=== PATIENT | male | born 1995 | race African-American/Black ===

== ENCOUNTER 2019-05-16 01:51 | Inpatient (IN) ==
[2019-05-16] MEDS ORDERED: ONDANSETRON INJ 2 MG/ML 2 ML VIAL IV STA ×2 (02:37→04:06)
[2019-05-16] MEDS: SODIUM CHLORIDE 0.9% 1000ML 1,000 ML IV SCH ×2 (02:45→03:46)
[2019-05-16 02:50] LABS: Hematocrit (blood only) 49.6 % (42-52); Hemoglobin 16.9 g/dL (14.0-18.0); Mean Corpuscular Hemoglobin 31.1 pg (25-34); Mean Corpuscular Hgb Conc 34.1 g/dL (32-36); Mean Corpuscular Volume 91.3 fL (80-100); Mean Platelet Volume 11.6 fL (7.4-10.4); Platelet Count 190 K/uL (130-400); RDW Coefficient of Variation 12.5 % (11.5-14.5); Red Blood Count 5.43 M/uL (4.7-6.1); White Blood Count 17.58 K/uL (4.8-10.8)
[2019-05-16 03:01] LABS: Appearance Urine Clear (Clear); Bacteria Urine Automated Negative (Negative); Bilirubin Urine Negative (Negative); Blood Urine Negative (Negative); Cast Urine Automated 0 /lpf (0-5); Color Urine Yellow; Epithelial Cell Urine Auto 0-5 /lpf (0-5); Glucose Urine UA 3+ (Negative); Leukocyte Esterase Urine Negative (Negative); Nitrite Urine Negative (Negative); Protein Urine 1+ (Negative); RBC Urine Automated 0-4 /hpf (0-4); Specific Gravity Urine 1.038 (1.000-1.030); Urobilinogen Urine Negative (Negative); WBC Urine Automated 0 /hpf (0-5)
[2019-05-16 03:13] LABS: Basophils # (auto) 0.04 K/uL (0-0.2); Basophils % (auto) 0.2 %; Eosinophils # (auto) 0.02 K/uL (0-0.5); Eosinophils % (auto) 0.1 %; Immature Granulocytes # (auto) 0.24 K/uL (0.00-0.02); Immature Granulocytes % (auto) 1.4 %; Lymphocytes # (auto) 1.39 K/uL (1.2-3.4); Lymphocytes % (auto) 7.9 %; Monocytes % (auto) 5.7 %; Neutrophils # (auto) 14.89 K/uL (1.4-6.5); Neutrophils % (auto) 84.7 %
[2019-05-16 03:18] LABS: Albumin Globulin Ratio 0.9 (0.9-2); Albumin Level 4.6 gm/dl (3.4-5.0); BUN Creatinine Ratio 12.3 (10-20); Bilirubin,Total 0.9 mg/dl (0.2-1); Calcium 10.2 mg/dl (8.5-10.1); Creatinine Clr Calc Pharmacy 42.6 ml/min; Est GFR (African American) 76.7; Est GFR (Non-African American) 66.2; Potassium 5.1 mmol/L (3.5-5.1); Total Protein 9.6 gm/dl (6.4-8.2)
[2019-05-16 03:18] LABS: Ketones Urine 4+ (Negative)
[2019-05-16] MEDS ORDERED: INSULIN HUMAN REGULAR PER UNIT 5 UNITS in SYRINGE 0 ML SC STA (03:32)
[2019-05-16 03:34] LABS: Amphetamines+Metham, Urine Neg (Neg); Barbiturates, Urine Neg (Neg); Benzodiazepine, Urine Neg (Neg); Cocaine, Urine Neg (Neg); MDMA (Ecstacy), Urine Neg (Neg); Methadone, Urine Neg (Neg); Opiate, Urine Neg (Neg); Phencyclidine, Urine Neg (Neg)
[2019-05-16] MEDS ORDERED: NovoLIN-R INSULIN PER UNIT CHARGE SQ ONE ×2 (03:45)
[2019-05-16 03:48] LABS: Beta-Hydroxybutyrate 89.79 mg/dl (0.2-2.81)
[2019-05-16] MEDS ORDERED: INSULIN ASPART 100 UNITS/ML 3 ML PEN SC SCH (04:00)
[2019-05-16] MEDS ORDERED: SODIUM CHLORIDE 0.9% 1000ML 1,000 ML IV SCH ×2 (04:15→06:45)
[2019-05-16] MEDS ORDERED: PROMETHAZINE 12.5 MG/50.5 ML BAG IV ONE (04:47)
--- NOTE | 2019-05-16 05:17 | History & Physical Report ---
Date of Service May 16, 2019 Assessment & Plan (1) DKA (diabetic ketoacidoses): Type I DM presenting with presumed DKA. Blood oexqo=420, anion gap = 28, serum HCO3=9. Patient with leukocytosis. K=5.1. Ki=691 which corrects to normal for hyperglycemia. No clear inciting event -Admit to PCU -NSS x 1L bolus followed by NSS at 125mL/hr -Insulin gtt per protocol - DKA range -Zofran and Phenergan PRN nausea -Tylenol PRN pain -BMP/VBG/Mg q 4 hours -NPO Present on Admission?: Yes (2) Nausea and vomiting: Most likely secondary to DKA -Phenergan and Zofran PRN Present on Admission?: Yes (3) Leukocytosis: WBC=17.58, Neutrophil predominant. Patient afebrile, HD stable, no obvious source of infection. -Check CXR -Repeat CBC F/E/N- NSS @ 125mL/hr, change to D51/2NSS when BS 250, monitor electrolytes and replete as needed, BMP q 4 hours, NPO for now Ppx - Low risk for DVT Code - FUll Dispo - Admit to PCU Present on Admission?: Yes History of Present Illness Chief Complaint: DKA Primary Care Provider: [facility] 24yo male, [employer] student with Type I Dm presenting with DKA. Patient drank a little bit of EtOH on Thursday night. Thursday he began feeling fevers, chills, nausea with multiple episodes of non-bloody/non-bilious vomiting, dry heaving. His blood sugar on Thursday night was 127. He reports not missing any insulin doses - his dose was later than usual, however. He denies chest pain, palpitations, SOB, abdominal pain. Patient's friend is at bedside and provides majority of history as patient is feeling quite nauseous. ER Course: Insulin 5u, NSS x 2L, Zofran 4mg IV x 2, Phenergan 12.5mg Allergies Allergy/AdvReac Type Severity Reaction Status Date / Time No Known Drug Allergies Allergy Unknown Verified 05/16/19 02:21 Home Medications Home Medications Medication Instructions Recorded Confirmed Type Humalog KwikPen (U- 100) Insulin 30 units SQ DAILY #15 ml NS 03/28/19 05/16/19 Rx 100 unit/mL subcutaneous blood sugar diagnostic strips #10 ea 05/12/19 05/16/19 History glucagon (human recombinant) 1 mg 1 mg SQ Q20M PRN 05/12/19 05/16/19 History solution for injection insulin glargine (U-100) 100 18 units SQ DAILY ml 05/12/19 05/16/19 History unit/mL (3 mL) subcutaneous pen lancets 33 gauge #100 ea 05/12/19 05/16/19 History Past Med/Surg History Medical History Type I diabetes mellitus diagnosed at age 14 Surgical History No pertinent past surgical history Family History Other No pertinent family history in first degree relatives Social History Preferred Language: Upper Sorbian current occupational status: student Feels Safe at Home: Yes Smoking Status: Current some day smoker Hx Alcohol Use: Yes Alcohol Intake Frequency: Holidays/Special Occasions Hx Substance Use: Yes substance use type: marijuana Review of Systems Review of Systems: All systems reviewed & are unremarkable except as noted in HPI & below Physical Exam Physical Exam: General: patient in mild distress secondary to nausea, ill in appearance, AA&O x 4 Skin: warm, dry, intact, no rashes or lesions HEENT: NC/AT, PERRL, EOMI, anicteric sclera, conjunctiva without injection, external ear normal to inspection and nontender, nares patent, dry mucus me mbranes, dentition intact, no oropharyngeal lesions, neck supple, trachea midline, no LAD, no thyromegaly, no JVD Heart: +S1/S2, regular, no m/r/g Lungs: equal air entry bilaterally, no rales/rhonchi/wheezes Abd: +BS, soft, NT/ND, no masses/organomegaly/ascites Ext: warm, 2+ pulses in UE/LE bilaterally, no clubbing/cyanosis or edema Neuro: nonfocal, patient AA&O x 4, speech intact, no facial droop, moving all extremities on command with equal strength 5/5 Results & Data Vital Signs (Past 12 Hours) Vital Signs Temp Pulse Pulse Resp BP BP Pulse Ox 05/16/19 04:15 95 H 18 135/76 100 05/16/19 02:51 90 18 150/93 H 99 05/16/19 01:56 36.8 C 110 H 20 139/80 96 Laboratory Results Lab Results 05/16/19 05/16/1919 Range/Units 02:05 02:10 02:10 WBC 17.58 H (4.8-10.8) K/uL RBC 5.43 (4.7-6.1) M/uL Hgb 16.9 (14.0-18.0) g/dL Hct 49.6 (42-52) % MCV 91.3 (80-100) fL MCH 31.1 (25-34) pg MCHC 34.1 (32-36) g/dL RDW Std Deviation 42.0 (36.4-46.3) fL RDW Coeff of Catherine 12.5 (11.5-14.5) % Plt Count 190 (130-400) K/uL MPV 11.6 H (7.4-10.4) fL Immature Gran % (Auto) 1.4 % Neut % (Auto) 84.7 % Lymph % (Auto) 7.9 % [place] % (Auto) 5.7 % Eos % (Auto) 0.1 % Baso % (Auto) 0.2 % Immature Gran # (Auto) 0.24 H (0.00-0.02) K/uL Neut # (Auto) 14.89 H (1.4-6.5) K/uL Lymph # (Auto) 1.39 (1.2-3.4) K/uL [place] # (Auto) 1.00 H (0.11-0.59) K/uL Eos # (Auto) 0.02 (0-0.5) K/uL Baso # (Auto) 0.04 (0-0.2) K/uL Sodium 129 L (136-145) mmol/L Potassium 5.1 (3.5-5.1) mmol/L Chloride 92 L (98-107) mmol/L Carbon Dioxide 9 L* (21-32) mmol/L Anion Gap 28.0 H (3-11) BUN 18 (7-18) mg/dl Creatinine 1.48 H (0.6-1.4) mg/dl Est Cr Clr Drug Dosing 42.6 ml/min Est GFR ( Amer) 76.7 Est GFR (Non-Af Amer) 66.2 BUN/Creatinine Ratio 12.3 (10-20) Glucose 511 H* (70-99) mg/dl POC Glucose 487 H* (70-99) Calcium 10.2 H (8.5-10.1) mg/dl Total Bilirubin 0.9 (0.2-1) mg/dl AST 25 (15-37) U/L ALT 30 (12-78) U/L Alkaline Phosphatase 149 H (45-117) U/L Total Protein 9.6 H (6.4-8.2) gm/dl Albumin 4.6 (3.4-5.0) gm/dl Globulin 5.0 H (2.5-4.0) gm/dl Albumin/Globulin Ratio 0.9 (0.9-2) Lipase 37 L (73-393) U/L Beta-Hydroxybutyric Acd 89.79 H (0.2-2.81) mg/dl Urine Color Urine Appearance (Clear) Urine pH (4.5-7.5) Ur Specific [place] (1.000-1.030) Urine Protein (Negative) Urine Glucose (UA) (Negative) Urine Ketones (Negative) Urine Blood (Negative) Urine Nitrite (Negative) Urine Bilirubin (Negative) Urine Urobilinogen (Negative) Ur Leukocyte Esterase (Negative) Urine WBC (Auto) (0-5) /hpf Urine RBC (Auto) (0-4) /hpf U Hyaline Cast (Auto) (0-5) /lpf U Epithel Cells (Auto) (0-5) /lpf Urine Bacteria (Auto) (Negative) Urine Opiates Screen (Neg) Ur Methadone, Qual (Neg) Urine Barbiturates (Neg) Ur Phencyclidine (PCP) (Neg) U Amphetamin/Meth Scrn (Neg) MDMA (Ecstasy) Screen (Neg) U Benzodiazepines Scrn (Neg) Ur Cocaine Metabolite (Neg) U Marijuana (THC) Screen (Neg) Influenza Type A Ag (Neg) Influenza Type B Ag (Neg) 05/16/19 05/16/19 05/16/19 Range/Units 02:51 02:51 02:51 WBC (4.8-10.8) K/uL RBC (4.7-6.1) M/uL Hgb (14.0-18.0) g/dL Hct (42-52) % MCV (80-100) fL MCH (25-34) pg MCHC (32-36) g/dL RDW Std Deviation (36.4-46.3) fL RDW Coeff of Catherine (11.5-14.5) % Plt Count (130-400) K/uL MPV (7.4-10.4) fL Immature Gran % (Auto) % Neut % (Auto) % Lymph % (Auto) % [place] % (Auto) % Eos % (Auto) % Baso % (Auto) % Immature Gran # (Auto) (0.00-0.02) K/uL Neut # (Auto) (1.4-6.5) K/uL Lymph # (Auto) (1.2-3.4) K/uL [place] # (Auto) (0.11-0.59) K/uL Eos # (Auto) (0-0.5) K/uL Baso # (Auto) (0-0.2) K/uL Sodium (136-145) mmol/L Potassium (3.5-5.1) mmol/L Chloride (98-107) mmol/L Carbon Dioxide (21-32) mmol/L Anion Gap (3-11) BUN (7-18) mg/dl Creatinine (0.6-1.4) mg/dl Est Cr Clr Drug Dosing ml/min Est GFR ( Amer) Est GFR (Non-Af Amer) BUN/Creatinine Ratio (10-20) Glucose (70-99) mg/dl POC Glucose (70-99) Calcium (8.5-10.1) mg/dl Total Bilirubin (0.2-1) mg/dl AST (15-37) U/L ALT (12-78) U/L Alkaline Phosphatase (45-117) U/L Total Protein (6.4-8.2) gm/dl Albumin (3.4-5.0) gm/dl Globulin (2.5-4.0) gm/dl Albumin/Globulin Ratio (0.9-2) Lipase (73-393) U/L Beta-Hydroxybutyric Acd (0.2-2.81) mg/dl Urine Color Yellow Urine Appearance Clear (Clear) Urine pH 5.0 (4.5-7.5) Ur Specific [place] 1.038 H (1.000-1.030) Urine Protein 1+ H (Negative) Urine Glucose (UA) 3+ H (Negative) Urine Ketones 4+ H (Negative) Urine Blood Negative (Negative) Urine Nitrite Negative (Negative) Urine Bilirubin Negative (Negative) Urine Urobilinogen Negative (Negative) Ur Leukocyte Esterase Negative (Negative) Urine WBC (Auto) 0 (0-5) /hpf Urine RBC (Auto) 0-4 (0-4) /hpf U Hyaline Cast (Auto) 0 (0-5) /lpf U Epithel Cells (Auto) 0-5 (0-5) /lpf Urine Bacteria (Auto) Negative (Negative) Urine Opiates Screen Neg (Neg) Ur Methadone, Qual Neg (Neg) Urine Barbiturates Neg (Neg) Ur Phencyclidine (PCP) Neg (Neg) U Amphetamin/Meth Scrn Neg (Neg) MDMA (Ecstasy) Screen Neg (Neg) U Benzodiazepines Scrn Neg (Neg) Ur Cocaine Metabolite Neg (Neg) U Marijuana (THC) Screen Pos H (Neg) Influenza Type A Ag Neg for Influ A (Neg) Influenza Type B Ag Neg for Influ B (Neg) 05/16/19 Range/Units 04:18 WBC (4.8-10.8) K/uL RBC (4.7-6.1) M/uL Hgb (14.0-18.0) g/dL Hct (42-52) % MCV (80-100) fL MCH (25-34) pg MCHC (32-36) g/dL RDW Std Deviation (36.4-46.3) fL RDW Coeff of Catherine (11.5-14.5) % Plt Count (130-400) K/uL MPV (7.4-10.4) fL Immature Gran % (Auto) % Neut % (Auto) % Lymph % (Auto) % [place] % (Auto) % Eos % (Auto) % Baso % (Auto) % Immature Gran # (Auto) (0.00-0.02) K/uL Neut # (Auto) (1.4-6.5) K/uL Lymph # (Auto) (1.2-3.4) K/uL [place] # (Auto) (0.11-0.59) K/uL Eos # (Auto) (0-0.5) K/uL Baso # (Auto) (0-0.2) K/uL Sodium (136-145) mmol/L Potassium (3.5-5.1) mmol/L Chloride (98-107) mmol/L Carbon Dioxide (21-32) mmol/L Anion Gap (3-11) BUN (7-18) mg/dl Creatinine (0.6-1.4) mg/dl Est Cr Clr Drug Dosing ml/min Est GFR ( Amer) Est GFR (Non-Af Amer) BUN/Creatinine Ratio (10-20) Glucose (70-99) mg/dl POC Glucose 424 H* (70-99) Calcium (8.5-10.1) mg/dl Total Bilirubin (0.2-1) mg/dl AST (15-37) U/L ALT (12-78) U/L Alkaline Phosphatase (45-117) U/L Total Protein (6.4-8.2) gm/dl Albumin (3.4-5.0) gm/dl Globulin (2.5-4.0) gm/dl Albumin/Globulin Ratio (0.9-2) Lipase (73-393) U/L Beta-Hydroxybutyric Acd (0.2-2.81) mg/dl Urine Color Urine Appearance (Clear) Urine pH (4.5-7.5) Ur Specific [place] (1.000-1.030) Urine Protein (Negative) Urine Glucose (UA) (Negative) Urine Ketones (Negative) Urine Blood (Negative) Urine Nitrite (Negative) Urine Bilirubin (Negative) Urine Urobilinogen (Negative) Ur Leukocyte Esterase (Negative) Urine WBC (Auto) (0-5) /hpf Urine RBC (Auto) (0-4) /hpf U Hyaline Cast (Auto) (0-5) /lpf U Epithel Cells (Auto) (0-5) /lpf Urine Bacteria (Auto) (Negative) Urine Opiates Screen (Neg) Ur Methadone, Qual (Neg) Urine Barbiturates (Neg) Ur Phencyclidine (PCP) (Neg) U Amphetamin/Meth Scrn (Neg) MDMA (Ecstasy) Screen (Neg) U Benzodiazepines Scrn (Neg) Ur Cocaine Metabolite (Neg) U Marijuana (THC) Screen (Neg) Influenza Type A Ag (Neg) Influenza Type B Ag (Neg) Code Status & VTE Plan Code Status full VTE Prophylaxis Plan VTE Prophylaxis will be ordered: No Reason for no VTE drug order: Treatment not indicated Reason for no VTE mechanical prophylaxis: Treatment not indicated PG Care Time/CCT Total # of Minutes Spent Total Time Spent with Patient: Total time spent is greater than 50% in coordination of care (as documented) at patient's floor/unit and/or counseling patient: (1) DKA (diabetic ketoacidoses) Diabetes mellitus complication detail: without coma Diabetes mellitus type: type 1 Qualified Code(s): E10.10 - Type 1 diabetes mellitus with ketoacidosis without coma (2) Nausea and vomiting Vomiting Intractability: unspecified Vomiting type: unspecified Qualified Code(s): R11.2 - Nausea with vomiting, unspecified (3) Leukocytosis Leukocytosis type: unspecified Qualified Code(s): D72.829 - Elevated white blood cell count, unspecified
[2019-05-16] MEDS ORDERED: ONDANSETRON INJ 2 MG/ML 2 ML VIAL IV PRN (05:28)
[2019-05-16] MEDS ORDERED: ACETAMINOPHEN 325 MG TAB PO PRN (05:28)
[2019-05-16] MEDS ORDERED: PROMETHAZINE HCL 12.5 MG in SODIUM CHLORIDE 0.9% 50 ML IV PRN (05:28)
[2019-05-16] MEDS ORDERED: DKA GOAL RANGE 150-250 mg/dl ONE (05:28)
[2019-05-16] MEDS ORDERED: SODIUM CHLORIDE 0.9% 1000ML 1,000 ML IV ONE (05:45)
[2019-05-16] MEDS ORDERED: CARBOHYDRATES FOR HYPOGLYCEMIA PO PRN (06:00)
[2019-05-16] MEDS ORDERED: PENDING D5 1/2NS+20mEq KCL IVF SCH (06:00)
[2019-05-16] MEDS ORDERED: GLUCAGON FOR INJ 1 MG VIAL IM PRN (06:00)
[2019-05-16] MEDS ORDERED: INSULIN REGULAR 250 UNITS in SODIUM CHLORIDE 0.9% 247.5 ML IV SCH (06:00)
[2019-05-16] MEDS ORDERED: INSULIN HUMAN REGULAR IV BOLUS 5 UNITS in SYRINGE 0 ML IV ONE (06:00)
[2019-05-16] MEDS ORDERED: GLUCOSE 10 TABS/TUBE PO PRN (06:00)
[2019-05-16] MEDS ORDERED: GLUCOSE 40% GEL 15 GM TUBE PO PRN (06:00)
[2019-05-16] MEDS ORDERED: DEXTROSE 50% 50 ML SYRINGE IV PRN (06:00)
[2019-05-16 07:07] LABS: BUN Creatinine Ratio 13.4 (10-20); Calcium 7.8 mg/dl (8.5-10.1); Creatinine Clr Calc Pharmacy 75.2 ml/min; Est GFR (African American) 104.1; Est GFR (Non-African American) 89.8; Magnesium 2.1 mg/dl (1.8-2.4); Potassium 4.7 mmol/L (3.5-5.1)
--- NOTE | 2019-05-16 07:11 | XRay Report ---
XR chest 1V portable CLINICAL HISTORY: Diabetic ketoacidosis. COMPARISON STUDY: No previous studies for comparison. FINDINGS: Lung volumes are normal. Lungs are clear. There is no pneumothorax or pleural effusion. Car diac size is normal. Mediastinal contours are normal. There is no evidence for pulmonary edema. IMPRESSION: No acute cardiopulmonary findings. Electronically signed by: Maximino Choi M.D. 05/16/2019 7:10 AM
[2019-05-16] MEDS ORDERED: D5W AND 1/2NSS + 20MEQ KCL 20 MEQ/1,000 ML BAG IV SCH (07:45)
[2019-05-16] MEDS ORDERED: PHARMACY GLYCEMIC MGMT CONSULT PRN (08:02)
[2019-05-16 08:09] LABS: Estimated Average Glucose 324 mg/dl; Hemoglobin A1C 12.9 % (4.5-5.6)
--- NOTE | 2019-05-16 08:27 | Pharmacy Report ---
Glycemic Control Consultation - Date of Service May 16, 2019 - Scope Scope: Glycemic Pharmacist consulted for glycemic control and to write orders per [facility] inpatient glycemic control protocol - Objective Weight: 52.8 kg Acckbecks BSG (last 24hrs): 05/16/19 05/16/19 05/16/19 02:05 02:10 04:18 Glucose 511 H* POC Glucose 487 H* 424 H* 05/16/19 05/16/19 05/16/19 05:58 06:19 07:07 Glucose 293 H POC Glucose 300 H 202 H 05/16/19 08:04 Glucose POC Glucose 163 H Laboratory Data (last 24hrs): 05/16/19 05/16/19 02:10 06:19 Potassium 5.1 4.7 Carbon Dioxide 9 L* 11 L Anion Gap 28.0 H 17.0 H Creatinine 1.48 H 1.15 D Est Cr Clr Drug Dosing 42.6 75.2 Beta-Hydroxybutyric Acd 89.79 H HbA1c: Hemoglobin A1c 12.9 % (4.5-5.6) H 05/16/19 06:19 - Recent Pertinent Medications Outpatient Anti-diabetic Regimen: Per Lindsay Laura (educator senior clinical) * Basaglar 16 units SC qHS * Humalog 8-12 units SC TIDM A1c = 12.9 % on 05/16/19 The patient is currently receiving: * Insulin drip @ 2.4 units/hr Risk Factors for Insulin Resistance: * IVF: D5 1/2NS w KCL 20 mEq/L @ 100 mL/hr * Diet: T1DM - Assessment & Plan Assessment & Plan: ASSESSMENT: * 24 yo M with TYPE 1 diabetes admitted for DKA. Etiology of DKA likely 2nd missed Basaglar dose yesterday in addition to insufficient doses of insulin chronically due in part to significant recent decrease in physical activity. HbA1c of 12.9%. * Insulin drip was started this AM at around 0600. Patient is not ready to transition to basal/bolus at this time as anion gap is still elevated, CO2 is still low, and pH is still low. Ongoing labs ordered q4h to trend. * Anion gap now less than 12, CO2 greater than 15, and pH greater than 7.3. Transition off of insulin drip can be attempted soon * Dextrose and potassium content in IVF is appropriate, but OK to discontinue now that electrolytes have normalized * Goal range 150-250 mg/dL changed to 140-180 mg/dL now that electrolytes have normalized * Spoke w Lindsay Laura (educator senior clinical) who clarified outpatient regimen (above). Patient reported surprise with how high his A1c was, noting that it is usually significantly below current of 12.9%. He reported that he usually checks his BSG's 4 times per day and they have been running ~250 mg/dL. He did not take his Basaglar yesterday nor did he check BSG's because he wasn't eating. Education provided by Lindsay r/moshe importance of checking BSG's more frequently and also to not hold basal insulin. * Patient would likely benefit from transitioning to basal/bolus with 1st dose Lantus in the evening to aid eventual transition back to outpatient regimen. Discussed with Dr. Kt HAGEN to attempt transition with 1st Lantus dose this evening. PLAN FOR INPATIENT GLYCEMIC CONTROL: * Continue IV insulin infusion, new goal range 140-180 mg/dL to help drip transition off. Stop at 0200. * Lantus 18 units x1 @ 2000 * Bolus insulin (while on drip) * NovoLog per scale ACHS * Carb ratio determined by insulin drip calculator * Bolus insulin (after drip d/c) * Novolog per scale ACHS with 0000,0400 checks * Goal range 120-160 mg/dL * Correction factor: 45 mg/dL/unit * Carb ratio: 15 g CHO/unit * Please note that the plan above was derived based on current level of insulin resistance and hospital stress. These recommendations are appropriate for inpatient admission only. Plan of care upon discharge will need to be reassessed to avoid potential outpatient hypo/hyperglycemia. Thank you.
[2019-05-16] MEDS: INSULIN ASPART 100 UNITS/ML 3 ML PEN SC SCH ×4 (09:28→20:39)
[2019-05-16 10:26] LABS: BUN Creatinine Ratio 12.7 (10-20); Calcium 8.1 mg/dl (8.5-10.1); Creatinine Clr Calc Pharmacy 92.1 ml/min; Est GFR (African American) 132.9; Est GFR (Non-African American) 114.6; Magnesium 2.1 mg/dl (1.8-2.4); Potassium 4.6 mmol/L (3.5-5.1)
[2019-05-16 10:27] LABS: Phosphorus 2.6 mg/dl (2.5-4.9)
[2019-05-16 14:09] LABS: BUN Creatinine Ratio 9.7 (10-20); Calcium 8.4 mg/dl (8.5-10.1); Creatinine Clr Calc Pharmacy 83.2 ml/min; Est GFR (African American) 117.6; Est GFR (Non-African American) 101.4; Potassium 4.2 mmol/L (3.5-5.1)
[2019-05-16 14:10] LABS: Phosphorus 2.7 mg/dl (2.5-4.9)
--- NOTE | 2019-05-16 15:47 | History & Physical Bridge Note ---
Date of Service May 16, 2019 History & Physical Bridge Note I have examined the patient, reviewed the History & Physical and in the interval since the performance of the History & Physical I have noted the following changes of clinical significance patient feeling a lot better this morning reviewed most recent labs, AG closed at 9, HCO3 up to 18, glucose in range d/w pharmacy, will start Lantus this evening, transition to SS insulin and off drip he says that he follows at [facility] Endocr[facility]ology, next appt in July he admits that he used to work out a lot more, stopped doing that, may be why his insulin requirement is higher will check labs in the AM, follow glucose off the drip plan for going home tomorrow with [facility] follow up and likely closer endocrinology follow up pharmacy and ems educator will help with d/c planning
[2019-05-16] MEDS ORDERED: COUGH DROP (SUGAR FREE) LOZ 24 LOZ/1 BOX BUCCAL ONE (16:47)
[2019-05-16] MEDS ORDERED: INSULIN GLARGINE SOLOSTAR 100 UNITS/ML 3 ML PEN SC ONE (20:00)
[2019-05-16] MEDS ORDERED: Nursing to Pharmacy Communication ONE (20:46)
[2019-05-16] MEDS ORDERED: CHLORASEPTIC 1.4% SOLN 180 ML BTL MT PRN (21:16)
--- NOTE | 2019-05-17 00:03 | Emergency Department Note ---
History of Present Illness General Chief complaint: Fever Stated complaint: HIGH FEVER,FREQUENT VOMITING Time Seen by Provider: 05/16/19 02:34 History of Present Illness This is a 24-year-old male presenting to the emergency department for evaluation of nausea and vomiting for the past 16 hours. The patient is a diabetic who uses injectable insulin. He did drink a small amount of alcohol on Thursday and Thursday night, and did smoke marijuana. The patient believes that he has had a fever, but has not been checking his temperature. The patient initially had foodborne emesis, but is now dry heaving. He is not able to take anything by mouth because of his symptoms. He does have full body aches but not distinct chest or abdominal pains. He rates his current discomfort in 02/26. Home Medications Home Medications Medication Instructions Recorded Confirmed Type Humalog KwikPen (U- 100) Insulin 30 units SQ DAILY #15 ml NS 03/28/19 05/16/19 Rx 100 unit/mL subcutaneous blood sugar diagnostic strips #10 ea 05/12/19 05/16/19 History glucagon (human recombinant) 1 mg 1 mg SQ Q20M PRN 05/12/19 05/16/19 History solution for injection insulin glargine (U-100) 100 18 units SQ DAILY ml 05/12/19 05/16/19 History unit/mL (3 mL) subcutaneous pen lancets 33 gauge #100 ea 05/12/19 05/16/19 History Allergies Allergy/AdvReac Type Severity Reaction Status Date / Time No Known Drug Allergies Allergy Unknown Verified 05/16/19 02:21 Past Med/Surg History Medical History Type I diabetes mellitus diagnosed at age 14 Surgical History No pertinent past surgical history Family History Other No pertinent family history in first degree relatives Social History Preferred Language: Portuguese Communication Ability: Effective 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 Current Living Situation: Alone current occupational status: student Feels Safe at Home: Yes Smoking Status: Light tobacco smoker Tobacco Type: smokeless tobacco ; Second Hand Exposure: Yes ; Hx Alcohol Use: Yes Alcohol type: beer Alcohol Intake Frequency: Holidays/Special Occasions Hx Substance Use: No Review of Systems A total of 10 systems reviewed and were otherwise negative Physical Exam Vital Signs Vital Signs - 24 hr 05/16/19 01:56 05/16/19 02:51 05/16/19 04:15 Temperature 36.8 C Temperature Source Oral Sepsis Recent Fever Within 48 Hours No Sepsis New/Unexplained Change in Mental Status No Sepsis Action Taken by Nursing No Action Required Pulse Rate 110 H Pulse Rate [Finger] 90 95 H Respiratory Rate 20 18 18 Blood Pressure 139/80 Blood Pressure [Right Arm] 150/93 H 135/76 Blood Pressure Mean 99 Blood Pressure Mean [Right Arm] 112 95 Pulse Oximetry 96 99 100 Oxygen Delivery Method Room Air Room Air Room Air VITALS: Vitals are noted on the nurse's note and reviewed by myself. Vital signs stable. GENERAL: Male who appears ill and uncomfortable. He is dry heaving at times on examination. HEAD: Normocephalic atraumatic. MOUTH: Mucous membranes dry. Tonsils are not enlarged. Pharynx without erythema, blood, or exudate. Uvula midline. Airway patent. NECK: Supple without nuchal rigidity. No lymphadenopathy. No thyromegaly. Cervical spine is nontender. HEART: Regular rate and rhythm without murmurs gallops or rubs. LUNGS: Clear to auscultation bilaterally without wheezes, rales or rhonchi. No retractions or accessory muscle use. ABDOMEN: Positive normal bowel sounds x 4. Soft, nontender, without masses or organomegaly. No guarding or rebound tenderness. MUSCULOSKELETAL: No muscle atrophy, erythema, or edema noted. Full range of m otion in all extremities. SKIN: The skin was with tenting Course Administered Medications Acetaminophen (Tylenol) 650 mg PO Q4H PRN PRN Reason: Pain or Fever Stop: 06/15/19 05:27 Last Admin: 05/16/19 23:53 Dose: 650 mg Documented by: [id number] Insulin Human Regular 250 (units/ Sodium Chloride) 250 mls @ 2.4 mls/hr IV .Q24H SARAH; Protocol Stop: 05/17/19 02:00 Last Titration: 05/16/19 20:40 Dose: 2.4 units/hr, 2.4 mls/hr Documented by: [id number] Cosigned by: [id number] Titration: 05/16/19 13:20 Dose: 2.4 units/hr, 2.4 mls/hr Documented by: [id number] Cosigned by: [id number] Titration: 05/16/19 11:08 Dose: 2.4 units/hr, 2.4 mls/hr Documented by: [id number] Cosigned by: [id number] Titration: 05/16/19 10:11 Dose: 2.4 units/hr, 2.4 mls/hr Documented by: [id number] Cosigned by: [id number] Titration: 05/16/19 09:00 Dose: 2.4 units/hr, 2.4 mls/hr Documented by: [id number] Cosigned by: [id number] Titration: 05/16/19 08:11 Dose: 2.4 units/hr, 2.4 mls/hr Documented by: [id number] Cosigned by: [id number] Titration: 05/16/19 07:35 Dose: 3 units/hr, 3 mls/hr Documented by: [id number] Cosigned by: [id number] Titration: 05/16/19 07:05 Dose: 0 units/hr, 0 mls/hr Documented by: [id number] Cosigned by: [id number] Admin: 05/16/19 06:05 Dose: 5 units/hr, 5 mls/hr Documented by: [id number] Cosigned by: [id number] Insulin Aspart (Novolog Flexpen) 0 units SC ACHS SARAH Stop: 05/16/19 23:59 Last Admin: 05/16/19 20:39 Dose: 1 units Documented by: [id number] Cosigned by: [id number] Admin: 05/16/19 17:06 Dose: Not Given Documented by: [id number] Cosigned by: [id number] Admin: 05/16/19 12:00 Dose: Not Given Documented by: [id number] Cosigned by: [id number] Admin: 05/16/19 09:28 Dose: Not Given Documented by: [id number] Cosigned by: [id number] Phenol (Chloraseptic 1.4% Sol[place]) 2 sprays MT Q1H PRN PRN Reason: Sore throat Stop: 06/15/19 21:15 Last Admin: 05/16/19 22:10 Dose: 2 sprays Documented by: [id number] Discontinued Medications Sodium Chloride (Nss 1000ml) 1,000 mls @ 999 mls/hr IV .Q1H1M SARAH Stop: 05/16/19 04:37 Last Infusion: 05/16/19 04:48 Dose: 0 mls/hr Documented by: [id number] Admin: 05/16/19 03:46 Dose: 999 mls/hr Documented by: [id number] Infusion: 05/16/19 03:46 Dose: 0 mls/hr Documented by: [id number] Admin: 05/16/19 02:45 Dose: 999 mls/hr Documented by: [id number] Sodium Chloride (Nss 1000ml) 1,000 mls @ 999 mls/hr IV .Q1H1M SARAH Stop: 05/16/19 05:15 Last Infusion: 05/16/19 05:18 Dose: 0 mls/hr Documented by: [id number] Admin: 05/16/19 04:14 Dose: 999 mls/hr Documented by: [id number] Promethazine HCl (Phenergan) 12.5 mg in 50.5 mls @ 202 mls/hr IV NOW ONE Stop: 05/16/19 05:01 Last Infusion: 05/16/19 05:05 Dose: 0 mls/hr Documented by: [id number] Admin: 05/16/19 04:50 Dose: 202 mls/hr Documented by: [id number] Sodium Chloride (Nss 1000ml) 1,000 mls @ 100 mls/hr IV .Q10H SARAH Stop: 06/15/19 06:44 Last Admin: 05/16/19 07:11 Dose: 100 mls/hr Documented by: [id number] Sodium Chloride (Nss 1000ml) 1,000 mls @ 999 mls/hr IV .Q1H1M ONE Stop: 05/16/19 06:45 Last Admin: 05/16/19 05:54 Dose: 999 mls/hr Documented by: [id number] Insulin Human Regular 5 units/ (Syringe) 5 mls @ 0 mls/min IV TODAY@0600 ONE Stop: 05/16/19 06:01 Last Admin: 05/16/19 06:06 Dose: 5 mls/min Documented by: [id number] Cosigned by: [id number] Potassium Chloride/Dextrose/Sod Cl (D5w And 1/2nss + 20meq Kcl) 20 meq in 1,000 mls @ 100 mls/hr IV .Q10H SARAH Stop: 06/15/19 07:44 Last Infusion: 05/16/19 22:22 Dose: 0 mls/hr Documented by: [id number] Infusion: 05/16/19 18:02 Dose: 0 mls/hr Documented by: [id number] Admin: 05/16/19 08:11 Dose: 100 mls/hr Documented by: [id number] Insulin Glargine (Lantus Solostar Pen) 18 units SC TODAY@1999 ONE; Protocol Stop: 05/16/19 20:01 Last Admin: 05/16/19 20:39 Dose: 18 units Documented by: [id number] Cosigned by: [id number] Insulin Human Regular (Novolin R U-100 Per Unit) 5 units SQ ONE ONE Stop: 05/16/19 03:46 Last Admin: 05/16/19 03:43 Dose: 5 units Documented by: [id number] Cosigned by: [id number] Menthol (Nice) Confirm Administered Dose 24 oziel BUCCAL .STK-MED ONE Stop: 05/16/19 16:48 Last Admin: 05/16/19 17:06 Dose: 24 oziel Documented by: [id number] Ondansetron HCl (Zofran) 4 mg IV NOW STA Stop: 05/16/19 02:38 Last Admin: 05/16/19 02:45 Dose: 4 mg Documented by: [id number] Ondansetron HCl (Zofran) 4 mg IV NOW STA Stop: 05/16/19 04:07 Last Admin: 05/16/19 04:14 Dose: 4 mg Documented by: [id number] Medical Decision Making Differential Diagnosis Differential diagnosis: Etiologies such as gastroenteritis, food borne illness, infections, appendicitis, diverticulitis, inflammatory bowel disease, obstruction, GI bleed, biliary pathology, cardiac process, intracranial process, as well as others were entertained. Laboratory Data Result diagrams: 05/16/19 02:10 05/16/19 13:37 Lab Results 05/16/19 05/16/19 05/16/19 Range/Units 02:05 02:10 02:10 WBC 17.58 H (4.8-10.8) K/uL RBC 5.43 (4.7-6.1) M/uL Hgb 16.9 (14.0-18.0) g/dL Hct 49.6 (42-52) % MCV 91.3 (80-100) fL MCH 31.1 (25-34) pg MCHC 34.1 (32-36) g/dL RDW Std Deviation 42.0 (36.4-46.3) fL RDW Coeff of Catherine 12.5 (11.5-14.5) % Plt Count 190 (130-400) K/uL MPV 11.6 H (7.4-10.4) fL Immature Gran % (Auto) 1.4 % Neut % (Auto) 84.7 % Lymph % (Auto) 7.9 % [place] % (Auto) 5.7 % Eos % (Auto) 0.1 % Baso % (Auto) 0.2 % Immature Gran # (Auto) 0.24 H (0.00-0.02) K/uL Neut # (Auto) 14.89 H (1.4-6.5) K/uL Lymph # (Auto) 1.39 (1.2-3.4) K/uL [place] # (Auto) 1.00 H (0.11-0.59) K/uL Eos # (Auto) 0.02 (0-0.5) K/uL Baso # (Auto) 0.04 (0-0.2) K/uL Sodium 129 L (136-145) mmol/L Potassium 5.1 (3.5-5.1) mmol/L Chloride 92 L (98-107) mmol/L Carbon Dioxide 9 L* (21-32) mmol/L Anion Gap 28.0 H (3-11) BUN 18 (7-18) mg/dl Creatinine 1.48 H (0.6-1.4) mg/dl Est Cr Clr Drug Dosing 42.6 ml/min Est GFR ( Amer) 76.7 Est GFR (Non-Af Amer) 66.2 BUN/Creatinine Ratio 12.3 (10-20) Glucose 511 H* (70-99) mg/dl POC Glucose 487 H* (70-99) Calcium 10.2 H (8.5-10.1) mg/dl Total Bilirubin 0.9 (0.2-1) mg/dl AST 25 (15-37) U/L ALT 30 (12-78) U/L Alkaline Phosphatase 149 H (45-117) U/L Total Protein 9.6 H (6.4-8.2) gm/dl Albumin 4.6 (3.4-5.0) gm/dl Globulin 5.0 H (2.5-4.0) gm/dl Albumin/Globulin Ratio 0.9 (0.9-2) Lipase 37 L (73-393) U/L Beta-Hydroxybutyric Acd 89.79 H (0.2-2.81) mg/dl Urine Color Urine Appearance (Clear) Urine pH (4.5-7.5) Ur Specific [place] (1.000-1.030) Urine Protein (Negative) Urine Glucose (UA) (Negative) Urine Ketones (Negative) Urine Blood (Negative) Urine Nitrite (Negative) Urine Bilirubin (Negative) Urine Urobilinogen (Negative) Ur Leukocyte Esterase (Negative) Urine WBC (Auto) (0-5) /hpf Urine RBC (Auto) (0-4) /hpf U Hyaline Cast (Auto) (0-5) /lpf U Epithel Cells (Auto) (0-5) /lpf Urine Bacteria (Auto) (Negative) Urine Opiates Screen (Neg) Ur Methadone, Qual (Neg) Urine Barbiturates (Neg) Ur Phencyclidine (PCP) (Neg) U Amphetamin/Meth Scrn (Neg) MDMA (Ecstasy) Screen (Neg) U Benzodiazepines Scrn (Neg) Ur Cocaine Metabolite (Neg) U Marijuana (THC) Screen (Neg) Influenza Type A Ag (Neg) Influenza Type B Ag (Neg) 05/16/19 05/16/19 05/16/19 Range/Units 02:51 02:51 02:51 WBC (4.8-10.8) K/uL RBC (4.7-6.1) M/uL Hgb (14.0-18.0) g/dL Hct (42-52) % MCV (80-100) fL MCH (25-34) pg MCHC (32-36) g/dL RDW Std Deviation (36.4-46.3) fL RDW Coeff of Catherine (11.5-14.5) % Plt Count (130-400) K/uL MPV (7.4-10.4) fL Immature Gran % (Auto) % Neut % (Auto) % Lymph % (Auto) % [place] % (Auto) % Eos % (Auto) % Baso % (Auto) % Immature Gran # (Auto) (0.00-0.02) K/uL Neut # (Auto) (1.4-6.5) K/uL Lymph # (Auto) (1.2-3.4) K/uL [place] # (Auto) (0.11-0.59) K/uL Eos # (Auto) (0-0.5) K/uL Baso # (Auto) (0-0.2) K/uL Sodium (136-145) mmol/L Potassium (3.5-5.1) mmol/L Chloride (98-107) mmol/L Carbon Dioxide (21-32) mmol/L Anion Gap (3-11) BUN (7-18) mg/dl Creatinine (0.6-1.4) mg/dl Est Cr Clr Drug Dosing ml/min Est GFR ( Amer) Est GFR (Non-Af Amer) BUN/Creatinine Ratio (10-20) Glucose (70-99) mg/dl POC Glucose (70-99) Calcium (8.5-10.1) mg/dl Total Bilirubin (0.2-1) mg/dl AST (15-37) U/L ALT (12-78) U/L Alkaline Phosphatase (45-117) U/L Total Protein (6.4-8.2) gm/dl Albumin (3.4-5.0) gm/dl Globulin (2.5-4.0) gm/dl Albumin/Globulin Ratio (0.9-2) Lipase (73-393) U/L Beta-Hydroxybutyric Acd (0.2-2.81) mg/dl Urine Color Yellow Urine Appearance Clear (Clear) Urine pH 5.0 (4.5-7.5) Ur Specific [place] 1.038 H (1.000-1.030) Urine Protein 1+ H (Negative) Urine Glucose (UA) 3+ H (Negative) Urine Ketones 4+ H (Negative) Urine Blood Negative (Negative) Urine Nitrite Negative (Negative) Urine Bilirubin Negative (Negative) Urine Urobilinogen Negative (Negative) Ur Leukocyte Esterase Negative (Negative) Urine WBC (Auto) 0 (0-5) /hpf Urine RBC (Auto) 0-4 (0-4) /hpf U Hyaline Cast (Auto) 0 (0-5) /lpf U Epithel Cells (Auto) 0-5 (0-5) /lpf Urine Bacteria (Auto) Negative (Negative) Urine Opiates Screen Neg (Neg) Ur Methadone, Qual Neg (Neg) Urine Barbiturates Neg (Neg) Ur Phencyclidine (PCP) Neg (Neg) U Amphetamin/Meth Scrn Neg (Neg) MDMA (Ecstasy) Screen Neg (Neg) U Benzodiazepines Scrn Neg (Neg) Ur Cocaine Metabolite Neg (Neg) U Marijuana (THC) Screen Pos H (Neg) Influenza Type A Ag Neg for Influ A (Neg) Influenza Type B Ag Neg for Influ B (Neg) 05/16/19 Range/Units 04:18 WBC (4.8-10.8) K/uL RBC (4.7-6.1) M/uL Hgb (14.0-18.0) g/dL Hct (42-52) % MCV (80-100) fL MCH (25-34) pg MCHC (32-36) g/dL RDW Std Deviation (36.4-46.3) fL RDW Coeff of Catherine (11.5-14.5) % Plt Count (130-400) K/uL MPV (7.4-10.4) fL Immature Gran % (Auto) % Neut % (Auto) % Lymph % (Auto) % [place] % (Auto) % Eos % (Auto) % Baso % (Auto) % Immature Gran # (Auto) (0.00-0.02) K/uL Neut # (Auto) (1.4-6.5) K/uL Lymph # (Auto) (1.2-3.4) K/uL [place] # (Auto) (0.11-0.59) K/uL Eos # (Auto) (0-0.5) K/uL Baso # (Auto) (0-0.2) K/uL Sodium (136-145) mmol/L Potassium (3.5-5.1) mmol/L Chloride (98-107) mmol/L Carbon Dioxide (21-32) mmol/L Anion Gap (3-11) BUN (7-18) mg/dl Creatinine (0.6-1.4) mg/dl Est Cr Clr Drug Dosing ml/min Est GFR ( Amer) Est GFR (Non-Af Amer) BUN/Creatinine Ratio (10-20) Glucose (70-99) mg/dl POC Glucose 424 H* (70-99) Calcium (8.5-10.1) mg/dl Total Bilirubin (0.2-1) mg/dl AST (15-37) U/L ALT (12-78) U/L Alkaline Phosphatase (45-117) U/L Total Protein (6.4-8.2) gm/dl Albumin (3.4-5.0) gm/dl Globulin (2.5-4.0) gm/dl Albumin/Globulin Ratio (0.9-2) Lipase (73-393) U/L Beta-Hydroxybutyric Acd (0.2-2.81) mg/dl Urine Color Urine Appearance (Clear) Urine pH (4.5-7.5) Ur Specific [place] (1.000-1.030) Urine Protein (Negative) Urine Glucose (UA) (Negative) Urine Ketones (Negative) Urine Blood (Negative) Urine Nitrite (Negative) Urine Bilirubin (Negative) Urine Urobilinogen (Negative) Ur Leukocyte Esterase (Negative) Urine WBC (Auto) (0-5) /hpf Urine RBC (Auto) (0-4) /hpf U Hyaline Cast (Auto) (0-5) /lpf U Epithel Cells (Auto) (0-5) /lpf Urine Bacteria (Auto) (Negative) Urine Opiates Screen (Neg) Ur Methadone, Qual (Neg) Urine Barbiturates (Neg) Ur Phencyclidine (PCP) (Neg) U Amphetamin/Meth Scrn (Neg) MDMA (Ecstasy) Screen (Neg) U Benzodiazepines Scrn (Neg) Ur Cocaine Metabolite (Neg) U Marijuana (THC) Screen (Neg) Influenza Type A Ag (Neg) Influenza Type B Ag (Neg) Imaging Data Radiologist's Impression: XR chest 1V portable CLINICAL HISTORY: Diabetic ketoacidosis. COMPARISON STUDY: No previous studies for comparison. FINDINGS: Lung volumes are normal. Lungs are clear. There is no pneumothorax or pleural effusion. Cardiac size is normal. Mediastinal contours are normal. There is no evidence for pulmonary edema. IMPRESSION: No acute cardiopulmonary findings. [facility] Narrative Physical exam and history were performed. Nursing notes, EMR, and Medication List were personally reviewed. Patient appears to have nausea and vomiting over the course of today. The patient is a type I diabetic and has not taken his insulin today out of concern because he has not eaten. IV access was established and labs were obtained. He was hydrated with 2 L normal saline. He was given IV Zofran for comfort. Patient's blood work is as above and was reviewed. He does have an elevated white count of 17.5. He does not have a significant anemia. Glucose is over 500 and beta hydroxy is 89. Lipase and transaminases are not diagnostic. Urine is with heavy ketones and glucose. Drug abuse screen is positive for marijuana. Influenza screen is negative. Chest x-ray was performed and reviewed by myself and radiology showing no acute process. On reevaluation the patient continued to feel unwell. He was given 5 units subcu regular insulin and additional liter of saline. He was given additional Z ofran. The patient appears to be in diabetic ketoacidosis which is likely contributing to his nausea and vomiting. The case was discussed with my attending, and then with the on-call hospitalist. Please see the hospitalist dictation for further patient course, plan, and disposition. The chart was completed utilizing [employer] Speech Voice Recognition Software. Grammatical errors, random word insertions, pronoun errors, and incomplete sentences are an occasional consequence of this system due to software limitations, ambient noise, and hardware issues. Any formal questions or concerns about the content, text, or information contained within the body of this dictation should be directly addressed to the provider for clarification. . Impression & Plan DKA (diabetic ketoacidoses), Nausea and vomiting, Marijuana use Discharge Plan Visit Data *Final* Discharge Date/Time: 05/16/19 05:40 Chief Complaint: Fever Stated Complaint: HIGH FEVER,FREQUENT VOMITING ED Provider: Priya Smith ED Midlevel Provider: Win Bardales Discharge Problem: DKA (diabetic ketoacidoses), Nausea and vomiting, Marijuana use Patient Disposition: Admitted As Inpatient Discharge Instructions Interventions: ED Discharge Assessment Last Done: 05/16/19 05:40 Discharge Problem: DKA (diabetic ketoacidoses) Qualifiers: Diabetes mellitus type: type 1 Diabetes mellitus complication detail: without coma Qualified Code(s): E10.10 - Type 1 diabetes mellitus with ketoacidosis without coma Nausea and vomiting Qualifiers: Vomiting type: unspecified Vomiting Intractability: unspecified Qualified Code(s): R11.2 - Nausea with vomiting, unspecified
[2019-05-17] MEDS ORDERED: INSULIN DRIP STOP ORDER ONE (02:00)
[2019-05-17] MEDS: INSULIN ASPART 100 UNITS/ML 3 ML PEN SC SCH ×5 (03:40→17:29)
[2019-05-17 05:47] LABS: Hematocrit (blood only) 39.3 % (42-52); Hemoglobin 13.6 g/dL (14.0-18.0); Mean Corpuscular Hemoglobin 30.6 pg (25-34); Mean Corpuscular Hgb Conc 34.6 g/dL (32-36); Mean Corpuscular Volume 88.3 fL (80-100); Mean Platelet Volume 10.7 fL (7.4-10.4); Platelet Count 150 K/uL (130-400); RDW Coefficient of Variation 12.4 % (11.5-14.5); RDW Standard Deviation 39.6 fL (36.4-46.3); Red Blood Count 4.45 M/uL (4.7-6.1); White Blood Count 9.68 K/uL (4.8-10.8)
[2019-05-17 05:48] LABS: Basophils # (auto) 0.02 K/uL (0-0.2); Basophils % (auto) 0.2 %; Eosinophils # (auto) 0.03 K/uL (0-0.5); Eosinophils % (auto) 0.3 %; Immature Granulocytes # (auto) 0.04 K/uL (0.00-0.02); Immature Granulocytes % (auto) 0.4 %; Lymphocytes # (auto) 0.97 K/uL (1.2-3.4); Monocytes % (auto) 12.4 %; Neutrophils # (auto) 7.42 K/uL (1.4-6.5); Neutrophils % (auto) 76.7 %
[2019-05-17] MEDS ORDERED: INSULIN GLARGINE SOLOSTAR 100 UNITS/ML 3 ML PEN SC STA (07:33)
[2019-05-17] MEDS ORDERED: INSULIN HUMAN REGULAR PER UNIT 4 UNITS in SYRINGE 3.96 ML IV ONE (07:45)
[2019-05-17] MEDS ORDERED: INSULIN HUMAN REGULAR PER IV ONE (07:45)
[2019-05-17 08:20] LABS: BUN Creatinine Ratio 11.1 (10-20); Calcium 8.4 mg/dl (8.5-10.1); Creatinine Clr Calc Pharmacy 95.8 ml/min; Est GFR (Non-African American) 120.8; Potassium 3.9 mmol/L (3.5-5.1)
--- NOTE | 2019-05-17 11:40 | Pharmacy Report ---
Pharmacy Glycemic Short Note 2 - Date of Service May 17, 2019 - Glycemic Short BSG Results (Last 24 hours): 05/16/19 05/16/19 05/16/19 13:24 13:37 15:00 Glucose 202 H POC Glucose 175 H 167 H 05/16/19 05/16/19 05/16/19 17:05 20:28 22:51 Glucose POC Glucose 145 H 175 H 151 H 05/17/19 05/17/19 05/17/19 01:49 01:51 02:11 Glucose POC Glucose 54 L* 58 L* 86 05/17/19 05/17/19 05/17/19 03:35 05:21 07:23 Glucose 291 H POC Glucose 171 H 404 H* 05/17/19 07:25 Glucose POC Glucose 317 H* Outpatient Anti-diabetic Regimen: Per Lindsay Laura (wellness educator) * Basaglar 16 units SC qHS * Humalog 8-12 units SC TIDM A1c = 12.9 % on 05/16/19 Risk Factors for Insulin Resistance: * Diet: T1DM ASSESSMENT: * 24 yo M with TYPE 1 diabetes admitted for DKA. Etiology of DKA likely 2nd missed Basaglar dose 05/15 in addition to insufficient doses of insulin chronically due in part to significant recent decrease in physical activity. Per Lindsay Laura, patient also reports non-adherence to regimen. HbA1c of 12.9%. * Insulin drip was started yesterday and was extraordinarily stable at 2.4 units/hr almost all day long * Lantus dose given last night @ ~2030 * Insulin drip continued @ 2.4 units/hr after Lantus was given, and patient was at that point on q4h checks. * Hypoglycemic event with BSG of 54 mg/dL noted at 0200 - etiology of this is *not* due to excessive basal dose, but instead due to insufficient BSG checks after Lantus administration that would have titrated insulin drip down (note - insulin drip protocol was followed, but as the patient's prior rates were stable, patient was on q4h checks at that time per protocol). At 0200, insulin drip went from 2.4 units/hr to 0 units/hr and was not resumed after 0200 * Evidence to support that basal dose was not in fact the cause of the hypoglycemic event overnight occurred after insulin drip was discontinued because BSG's increased significantly overnight after that 86-171-317 mg/dL. * Spoke w RN - patient denied snacking prior to his BSG check of 317 mg/dL this AM * Will give small supplemental Lantus dose this AM * Gave IV bolus dose for BSG >300 mg/dL at breakfast in addition to correctional Novolog. BSG only fell from 317 to 298 mg/dL from breakfast to lunch. However, interpretation of the 298 mg/dL obtained prior to lunch is complicated by patient eating a late breakfast ~1000. This was appropriately covered by additional Novolog per RN, however, BSG obtained prior to lunch was about 45-60 minutes after patient ate and was covered with Novolog. Therefore this may be post-prandial elevation. Correctional Novolog was also administered at lunch for possibly falsely high BSG and will therefore not provide additional IV insulin at this time as Novolog could be stacking. Hopefully, pre-dinner BSG will be improved. * Spoke w Dr. Meraz r/e above. Will also leave out for 2nd shift pharmacy evaluation. Discharge plans dependent on adequate glycemic control. PLAN FOR INPATIENT GLYCEMIC CONTROL: * Lantus 5 units x1 this AM. Additional Lantus tonight based on BSG * 13 units for BSG less than 140 mg/dL * 15 units for BSG 140-180 mg/dL * 18 units for BSG greater than 180 mg/dL * Bolus insulin * Novolog per scale ACHS with 0000,0400 checks * Goal range 120-160 mg/dL * Correction factor: 45 mg/dL/unit * Carb ratio: 15 g CHO/unit
[2019-05-17] MEDS ORDERED: INSULIN ASPART 100 UNITS/ML 3 ML PEN SC SCH (12:21)
[2019-05-17] MEDS ORDERED: INSULIN GLARGINE SOLOSTAR 100 UNITS/ML 3 ML PEN SC SCH (21:00)
--- NOTE | 2019-05-17 22:00 | Discharge Summary ---
Date of Service May 17, 2019 Admission HPI Per Admitting Provider 24yo male, [employer] student with Type I Dm presenting with DKA. Patient drank a little bit of EtOH on Thursday night. Thursday he began feeling fevers, chills, nausea with multiple episodes of non-bloody/non-bilious vomiting, dry heaving. His blood sugar on Thursday night was 127. He reports not missing any insulin doses - his dose was later than usual, however. He denies chest pain, palpitations, SOB, abdominal pain. Patient's friend is at bedside and provides majority of history as patient is feeling quite nauseous. ER Course: Insulin 5u, NSS x 2L, Zofran 4mg IV x 2, Phenergan 12.5mg Principal Diagnosis Diabetes type I with DKA Discharge Exam Constitutional WD/WN, vitals as above Eyes PERRL, conjunctivae normal, anicteric sclerae ENMT external ear and nose normal, oropharynx normal Neck trachea midline, no thyromegaly Respiratory normal respiratory effort, lungs clear to auscultation Cardiovascular RRR, no murmur, no edema Gastrointestinal (Abdomen) normal bowel sounds, soft, nontender, no hepatosplenomegaly Musculoskeletal no cyanosis or clubbing, extremities motor strength 5/5 Skin no rashes, warm and dry Neurologic patellar DTR's 2+ bilat, sensation intact and PERRL, EOMI, accommodation nl, no face palsy, no dysarthria Psychiatric A+Ox3, euthymic affect Lymphatic no cervical or axillary lymphadenopathy Discharge Data Allergies Allergy/AdvReac Type Severity Reaction Status Date / Time No Known Drug Allergies Allergy Unknown Verified 05/16/19 02:21 Consultations 05/16/19 04:09 ED Decision to Admit Stat Hospital Course (1) DKA (diabetic ketoacidoses): Type I DM, never had DKA before, never had admission to hospital for diabetes he likely went into DKA because he stopped taking basaglar for 1-2 days cause he was not feeling well and was not eating much he frequently will skip coverage with Humalog, will not take his Humalog to restaurants he used to have excellent control with HbA1c of 7, now it is 12.9 DKA resolved quickly, within 24 hours the anion gap was closed, HCO3 normalized, Cr and electrolytes stable sugars in the 150-170 range on the drip Lantus 15 units given evening of 05/17, insulin drip continued, he developed some hypoglycemia he then had some hyperglycemia in the lat morning on 05/18 required additional Basaglar and IV insulin sugars down to 220 in the evening on 05/18 he was feeling very well, no complaints at all, eating well he knew what he had done wrong, confident that he would manage diabetes better d/c home on Basaglar 18 units in evening Freya SS he had two sessions with asthma educator, answered all his questions follow up with [facility], endocrinology in July 2019 (2) Nausea and vomiting: Most likely secondary to DKA -Phenergan and Zofran PRN resolved completely as anion gap closed eating well (3) Leukocytosis: WBC=17.58, Neutrophil predominant. Patient afebrile, HD stable, no obvious source of infection. CXR clear WBC returned to normal, was reaction to DKA Total Time Total Time Spent Total Time Spent (In Minutes): 37 minutes Total Time Includes: Examination of the Patient, Discharge Planning, Medication Reconciliation and Communication With Other Providers (long discussion with pharmacist abut discharge plan) Discharge Plan Discharge Items Patient Disposition: Home - Self-Care Reason For Visit: dka Discharge Diagnosis: Diabetic ketoacidosis Condition on Discharge: Good Goals: better control over glucose levels, most recent A1c 12.9% close follow up with endocrinology, will help you arrange this Activity: Resume your previous activity Non-emergency contact: Primary Care Provider Call non-emergency contact if: you have any medication questions, your symptoms worsen and you have a fever Follow-up/Referrals: Johan Pryor MD [Physician] - 08/08/19 12:00 pm (Please, follow up at [facility]'s Endocrinology Office with Dr. Pryor on ThursdayAugust 08 at 12:00 pm. *We have requested a sooner appointment and someone from this office will contact you, if that can be arranged. If you have any questions, call the office at [phone].) [facility] [Non-Staff] - Yesica Rosales MD [Primary Care Provider] - 05/20/19 10:40 am (Please, follow up at [facility], on the [facility], with Dr. Yesica Rosales, on ThursdayMay 20 at 10:40 am. *If you need to change this appointment, call the office at [phone].) Diet: Carb Count or DM1 Addtl Attending Provider Instructions: Medications: - BASAGLAR: will keep at 18 units at night, take that this evening when you would typically take it - HUMALOG: see the sliding scale below Diabetic ketoacidosis: caused by not taking Basaglar and laxity in taking Humalog and checking sugars less frequently than you should DKA resolved within the first 24 hours with insulin drip, no longer with acidosis on blood work DKA can be prevented as long as you are compliant for discharge, recommend that you... - take Basaglar every evening, even if you are fasting, because as a diabetic you need the basal insulin - use Humalog with sliding scale as well as carb coverage goal is 120-160 with a correction factor of 45 (for every 45 over 160 give yourself one unit of insulin) carb ratio is 1 unit for every 15gm of carbohydrates that you eat you need to check sugars at least 4 times a day (prior to breakfast, lunch, dinner and night time) to closely monitor don't be afraid to take sugar more often, cover yourself for any snacks between meals TAKE your meter and Humalog with you when you go out to eat - encourage you to resume exercise regimen as this facilitates your muscles taking up glucose Most important thing is that you learn from this experience, that you need to take your disease seriously, there are no "days off" with diabetes, skipping a dose of Basaglar and missing some Humalog doses will send you back into DKA and you will have to come into the hospital. Prior A1c of 7 proves that you can con trol your disease. Pending Studies at Discharge: No Stand-Alone Forms: My [employer], Work/School Release (Inpt), Smoking Cessation Medications and DC Order Prescriptions: Continued insulin lispro [Humalog KwikPen Insulin] 100 unit/mL insulin pen 30 units SQ DAILY Qty: 15 RF: 0 Basaglar KwikPen U-100 Insulin 100 unit/mL (3 mL) insulin pen 18 units SQ DAILY RF: 0 Glucagon Emergency Kit (human) 1 mg recon soln 1 mg SQ Q20M PRN (Reason: as directed) RF: 0 lancets [OneTouch Delica Lancets] 33 gauge misc .ROUTE .MEDSUPPLY Qty: 100 RF: 0 OneTouch Verio strip .ROUTE .MEDSUPPLY Qty: 10 RF: 0 Discharge Orders: Discharge Order (Routine); Ordered 05/17/19 Ordered By: Dru Meraz Admission Data Admit Date/Time: 05/16/19 04:26 Attending Provider: Dru Meraz Admit Provider: Tanya Cuevas Primary Care Provider: Yesica Rosales Other Providers: Tanya Cuevas Other Interventions: Discharge Summary Assessment (RN) Last Done: 05/17/19 17:06 DC Date/Time DO NOT enter until pt leaves facility: 05/17/19 17:51
[2019-05-18] MEDS ORDERED: INSULIN ASPART 100 UNITS/ML 3 ML PEN SC SCH
== END 2019-05-17 17:51 | disposition home or self-care (01) | DRG 639 ==
LOC: ED 01:51 → 2S 04:26 → SUATTDRO 04:26 → 2S 05:40